=== PATIENT | female | born 2005 | race Two or more races ===

== ENCOUNTER 2023-10-12 13:20 | Inpatient (IN) | payer OTHER ==
[~2023-10-12] VITALS: Ht 157.5 cm; Wt 80.8 kg
[2023-10-12 14:16] LABS: BASOPHILS % (AUTO) 0.4 % (0.0-2.0); EOSINOPHILS % (AUTO) 0.1 % (1.0-6.0); HEMATOCRIT 42.4 % (36-46); HEMOGLOBIN 14.3 g/dL (12.0-16.0); LYMPHOCYTES # (AUTO) 1.7 K/uL (1.0-4.8); MEAN CORPUSCULAR HEMOGLOBIN 30.4 pg (26.0-34.0); MEAN CORPUSCULAR HGB CONC 33.7 G/dL (31.0-37.0); MEAN CORPUSCULAR VOLUME 90 fL (80-100); MONOCYTES # (AUTO) 0.8 K/uL (0.1-1.0); MONOCYTES % (AUTO) 6.9 % (2.0-9.0); NEUTROPHILS # (AUTO) 9.6 K/uL (1.8-7.7); NEUTROPHILS % (AUTO) 78.6 % (40.0-70.0); PLATELET COUNT (AUTO) 256 K/uL (150-450); RED BLOOD CELL COUNT(AUTO) 4.71 MIL/uL (4.00-5.20); WHITE BLOOD COUNT (AUTO) 12.2 K/uL (4.5-11.0)
[2023-10-12 14:26] LABS: ANION GAP 12 mmol/L (8-16); CALCIUM, TOTAL 9.2 mg/dL (8.8-10.5); CARBON DIOXIDE 23 mmol/L (22-29); CHLORIDE 105 mmol/L (98-107); CREATININE 0.95 mg/dL (0.60-1.30); GLOMERULAR FILTR. RATE CALC > 60 mL/min (>60); GLUCOSE,RANDOM 94 mg/dL (70-110); POTASSIUM 3.6 mmol/L (3.5-5.1); SODIUM SERUM 140 mmol/L (136-145); UREA NITROGEN, BLOOD 7 mg/dL (7-18)
[2023-10-12 14:28] LABS: ALCOHOL, BLOOD (SERUM) < 3 mg/dL (0-10)
[2023-10-12] MEDS: HALOPERIDOL LACTATE 5 MG/ML VIAL IM ONE (14:30)
[2023-10-12] MEDS: DiphenhydrAMINE HCL 50 MG/ML VIAL IM ONE (14:30)
[2023-10-12] MEDS: LORazepam 2 MG/ML VIAL IM ONE (14:30)
[2023-10-12 14:34] LABS: COVID AG,FIA SOURCE NASAL SWAB
[2023-10-12 15:00] LABS: SARS-COV2 (COVID) ANTIGEN,FIA Negative (Negative)
[2023-10-12 15:13] LABS: APPEARANCE,URINE HAZY (CLEAR); BILIRUBIN,URINE NEGATIVE (NEGATIVE); COLOR,URINE YELLOW (YELLOW); GLUCOSE, URINE (UA) NEGATIVE (NEGATIVE); LEUKOCYTE ESTERASE ,URINE NEGATIVE (NEGATIVE); NITRATE,URINE NEGATIVE (NEGATIVE); OCCULT BLOOD,URINE NEGATIVE (NEGATIVE); PH,URINE 6.5 (5.0-8.0); PH,URINE DRUG SCREEN 6.5 (5.0-8.0); PROTEIN,URINE TRACE mg/dL (NEGATIVE); SPECIFIC GRAVITIY, URINE 1.017 (1.003-1.030); UROBILINOGEN,URINE <=1.0 mg/dL (<=1.0)
[2023-10-12 15:18] LABS: ALCOHOL, URINE DRUG SCREEN NEGATIVE (NEGATIVE); AMPHET/METH SCREEN,URINE NEGATIVE (NEGATIVE); BARBITURATE SCREEN, URINE NEGATIVE (NEGATIVE); BENZODIAZEPINES SCREEN,URINE POSITIVE (NEGATIVE); CANNABINOID SCREEN,URINE POSITIVE (NEGATIVE); COCAINE SCREEN,URINE NEGATIVE (NEGATIVE); METHADONE SCREEN, URINE NEGATIVE (NEGATIVE); OPIATE SCREEN,URINE NEGATIVE (NEGATIVE); PHENCYCLIDINE SCREEN,URINE NEGATIVE (NEGATIVE)
[2023-10-12] MEDS ORDERED: CloNIDine HCL 0.1 MG TABLET PO PRN (19:45)
[2023-10-12] MEDS ORDERED: ONDANSETRON HCL 4 MG TABLET PO PRN (19:45)
[2023-10-12] MEDS ORDERED: PETROLATUM,WHITE 28 GM JELLY TP PRN (19:45)
[2023-10-12] MEDS ORDERED: DOCUSATE SODIUM 100 MG CAPSULE PO PRN (19:45)
[2023-10-12] MEDS ORDERED: LOPERAMIDE HCL 2 MG CAPSULE PO PRN (19:45)
[2023-10-12] MEDS ORDERED: BENZOCAINE/MENTHOL LOZENGE PO PRN (19:45)
[2023-10-12] MEDS ORDERED: BACITRACIN 28 GM OINTMENT TP PRN (19:45)
[2023-10-12] MEDS: HALOPERIDOL 5 MG TABLET PO PRN (21:28)
[2023-10-12] MEDS: LORazepam 2 MG TABLET PO PRN (21:28)
[2023-10-12 22:10] VITALS: BP 113/75; PULSE 79; RESP 20; TEMP 97.4
[2023-10-12] MEDS: ZOLPIDEM TARTRATE 10 MG TABLET PO PRN (22:27)
[2023-10-12 22:28] VITALS: BP 113/75; PULSE 79; RESP 20; TEMP 97.4; O2SAT 97
[2023-10-13] MEDS: NICOTINE 21 MG/24 HOUR PATCH TD SCH (09:00)
[2023-10-13 09:35] VITALS: BP 107/55; PULSE 55; RESP 18; RESP 20; TEMP 97; O2SAT 100
[2023-10-13 14:35] VITALS: BP 111/62; PULSE 61; RESP 17; TEMP 97.6
[2023-10-13] MEDS: IBUPROFEN 600 MG TABLET PO PRN (14:35)
[2023-10-13 21:05] VITALS: RESP 18
[2023-10-13] MEDS: MAG HYDROX/ALUMINUM HYD/SIMETH ES 30 ML SUSPENSION UDCUP PO PRN (23:36)
[2023-10-14 09:27] VITALS: BP 126/65; PULSE 86; RESP 18; TEMP 97.2; O2SAT 96
[2023-10-14] MEDS: OLANZapine 5 MG RAPDIS TABLET PO SCH (20:43)
[2023-10-14 20:52] VITALS: RESP 18
[2023-10-15] MEDS: LITHIUM CARBONATE 300 MG CAPSULE PO SCH (10:30)
[2023-10-15] MEDS: RisperiDONE 1 MG TABLET PO SCH (10:30)
[2023-10-15] MEDS ORDERED: DiphenhydrAMINE HCL 50 MG/ML VIAL ONE (10:32)
[2023-10-15] MEDS ORDERED: HALOPERIDOL LACTATE 5 MG/ML VIAL ONE (10:32)
[2023-10-15] MEDS: LORazepam 2 MG/ML VIAL IM ONE (11:11)
[2023-10-15] MEDS: DiphenhydrAMINE HCL 50 MG/ML VIAL IM ONE (11:11)
[2023-10-15] MEDS: HALOPERIDOL LACTATE 5 MG/ML VIAL IM ONE (11:26)
[2023-10-15 13:38] VITALS: BP 142/71; PULSE 88; RESP 18; O2SAT 98
[2023-10-15 21:26] VITALS: RESP 18
[2023-10-16 10:01] VITALS: RESP 18
[2023-10-16 20:58] VITALS: RESP 18
[2023-10-17 09:00] VITALS: PULSE 101; TEMP 97.1
[2023-10-17] MEDS: ALBUTEROL SULFATE HFA 90 MCG/PUFF 8 GM INHALER IH PRN (15:55)
[2023-10-17 22:49] VITALS: BP 136/87; PULSE 96; RESP 18; TEMP 97.4; O2SAT 98
[2023-10-18 09:35] VITALS: BP 139/100; PULSE 92; RESP 19; TEMP 97; O2SAT 100
[2023-10-18] MEDS: LORazepam 2 MG/ML VIAL IM ONE (18:26)
[2023-10-18] MEDS: HALOPERIDOL LACTATE 5 MG/ML VIAL IM ONE (18:31)
[2023-10-18] MEDS: DiphenhydrAMINE HCL 50 MG/ML VIAL IM ONE (18:32)
[2023-10-18 23:06] VITALS: RESP 18
[2023-10-19 00:35] VITALS: BP 117/73; PULSE 68; RESP 18; TEMP 97.3
[2023-10-19 08:42] VITALS: BP 105/61; PULSE 63; RESP 16; TEMP 97.7; O2SAT 100
[2023-10-19 20:43] VITALS: BP 121/76; PULSE 93; RESP 16; TEMP 97; O2SAT 99
[2023-10-20 08:08] VITALS: BP 136/77; PULSE 83; RESP 16; TEMP 97.6; O2SAT 98
[2023-10-20 21:31] VITALS: BP 129/78; PULSE 86; RESP 16; TEMP 97.9; O2SAT 98
[2023-10-20 21:54] VITALS: RESP 17
[2023-10-20] MEDS: ACETAMINOPHEN 325 MG TABLET PO PRN (21:56)
[2023-10-21 08:08] VITALS: BP 135/66; PULSE 79; RESP 16; TEMP 98.2; O2SAT 100
[2023-10-21] MEDS: OMEPRAZOLE 20 MG CAPSULE PO PRN (18:36)
[2023-10-21 20:45] VITALS: BP 128/72; PULSE 83; RESP 17; TEMP 97.9
[2023-10-22 08:10] VITALS: BP 116/60; PULSE 84; RESP 17; TEMP 97.6; O2SAT 99
[2023-10-22 20:35] VITALS: BP 124/83; PULSE 76; RESP 18; TEMP 98; O2SAT 98
[2023-10-23 08:17] VITALS: BP 130/65; PULSE 79; RESP 14; TEMP 97.8; O2SAT 99
[2023-10-23 20:39] VITALS: RESP 17
[2023-10-23 21:30] VITALS: RESP 15
[2023-10-24 08:25] VITALS: BP 131/64; PULSE 77; RESP 17; TEMP 97.6; O2SAT 98
[2023-10-24 20:00] VITALS: BP 127/60; PULSE 80; RESP 18; TEMP 98
[2023-10-25 08:30] VITALS: BP 132/72; PULSE 89; RESP 18; TEMP 97.9; O2SAT 98
[2023-10-25 20:00] VITALS: BP 125/67; PULSE 73; RESP 18; TEMP 97.6; O2SAT 97
[2023-10-26 08:29] VITALS: BP 115/63; PULSE 88; RESP 16; TEMP 98.2; O2SAT 98
[2023-10-26] MEDS: MAGNESIUM HYDROXIDE SUSPENSION 30 ML UDCUP PO PRN (08:35)
[2023-10-26 20:27] VITALS: BP 130/74; PULSE 86; TEMP 96.8; O2SAT 97
[2023-10-27] MEDS: ALOE VERA 100% 360 ML GEL TP SCH (08:23)
[2023-10-27 08:36] VITALS: BP 134/73; PULSE 92; RESP 16; TEMP 97.6; O2SAT 99
[2023-10-27] MEDS ORDERED: VITAMIN E TP SCH (09:00)
[2023-10-27] MEDS ORDERED: ALOE VERA TP SCH (09:00)
[2023-10-27 21:36] VITALS: BP 120/74; PULSE 97; RESP 18; TEMP 97.4; O2SAT 98
[2023-10-28 08:21] VITALS: BP 134/76; PULSE 100; RESP 18; TEMP 97.9; O2SAT 98
[2023-10-28] MEDS: RisperiDONE 1 MG TABLET PO ONE (10:17)
[2023-10-28] MEDS: RisperiDONE 2 MG TABLET PO SCH (20:15)
[2023-10-28 22:42] VITALS: BP 134/82; PULSE 90; RESP 16; TEMP 97.6; O2SAT 100
[2023-10-29] MEDS ORDERED: LITH300C3 PO (08:10)
[2023-10-29] MEDS ORDERED: RISP2TAB45 PO (08:10)
[2023-10-29 08:24] VITALS: BP 120/65; PULSE 82; RESP 16; TEMP 97.9; O2SAT 100
== END 2023-10-29 12:08 | disposition home or self-care (01) | DRG 885 ==
LOC: EMS 13:21 → 3EC 15:48 → B3A 10-18 22:13
PROVIDERS: ADMIT Psychiatry & Neurology Psychiatry; ATTEND Psychiatry & Neurology Psychiatry
PROC: GZHZZZZ Group Psychotherapy (ICD-10-PCS; principal; 2023-10-13)
PROC: GZ56ZZZ Individual Psychotherapy, Supportive (ICD-10-PCS; 2023-10-13)
DX: F25.0 Schizoaffective disorder, bipolar type (principal); F15.10 Other stimulant abuse, uncomplicated; F41.9 Anxiety disorder, unspecified; G47.00 Insomnia, unspecified; F12.10 Cannabis abuse, uncomplicated; Z20.822 Contact with and (suspected) exposure to COVID-19; K59.00 Constipation, unspecified; Z91.199 Patient's noncompliance with other medical treatment and regimen due to unspecified reason
CPT/HCPCS: 80048; 80307; 81003; 84703; 85025; 99285; G0480; J1200; J1630; J2060; J3535

== ENCOUNTER 2024-09-15 12:53 | Inpatient (IN) | payer OTHER ==
[~2024-09-15] VITALS: Ht 157.5 cm; Wt 77.1 kg
[~2024-09-15 12:53] MED LIST: LITH300C3 PO; RISP2TAB45 PO
[2024-09-15] MEDS: DiphenhydrAMINE HCL 50 MG/ML VIAL IM ONE (13:19)
[2024-09-15] MEDS: LORazepam 2 MG/ML VIAL IM ONE ×2 (13:19→16:23)
[2024-09-15] MEDS: HALOPERIDOL LACTATE 5 MG/ML VIAL IM ONE ×2 (13:20→16:23)
[2024-09-15 14:26] LABS: COVID AG,FIA SOURCE NASAL SWAB
[2024-09-15 14:33] LABS: ANION GAP 9 mmol/L (8-16); CALCIUM, TOTAL 8.9 mg/dL (8.8-10.5); CARBON DIOXIDE 27 mmol/L (22-29); CHLORIDE 105 mmol/L (98-107); CREATININE 0.75 mg/dL (0.60-1.30); GLOMERULAR FILTR. RATE CALC > 60 mL/min (>60); GLUCOSE,RANDOM 87 mg/dL (70-110); SODIUM SERUM 141 mmol/L (136-145); UREA NITROGEN, BLOOD 7 mg/dL (7-18)
[2024-09-15 14:35] LABS: BASOPHILS % (AUTO) 0.5 % (0.0-2.0); EOSINOPHILS % (AUTO) 0.2 % (1.0-6.0); HEMATOCRIT 38.8 % (36-46); HEMOGLOBIN 12.8 g/dL (12.0-16.0); LYMPHOCYTES # (AUTO) 1.4 K/uL (1.0-4.8); LYMPHOCYTES % (AUTO) 18.2 % (22.0-44.0); MEAN CORPUSCULAR HEMOGLOBIN 30.2 pg (26.0-34.0); MEAN CORPUSCULAR HGB CONC 33.1 G/dL (31.0-37.0); MEAN CORPUSCULAR VOLUME 91 fL (80-100); MONOCYTES # (AUTO) 0.7 K/uL (0.1-1.0); MONOCYTES % (AUTO) 9.6 % (2.0-9.0); NEUTROPHILS # (AUTO) 5.4 K/uL (1.8-7.7); NEUTROPHILS % (AUTO) 71.5 % (40.0-70.0); PLATELET COUNT (AUTO) 230 K/uL (150-450); RED BLOOD CELL COUNT(AUTO) 4.25 MIL/uL (4.00-5.20); RED CELL DISTRIBUTION WIDTH 13.5 % (11.5-14.5); WHITE BLOOD COUNT (AUTO) 7.6 K/uL (4.5-11.0)
[2024-09-15 14:46] LABS: POTASSIUM 2.9 mmol/L (3.5-5.1)
[2024-09-15 14:54] LABS: ALCOHOL, BLOOD (SERUM) < 3 mg/dL (0-10)
[2024-09-15] MEDS ORDERED: POTASSIUM CHL 10 MEQ/WATER 50 ML IV SCH (15:00)
[2024-09-15] MEDS ORDERED: SODIUM CHLORIDE 0.9% 1,000 ML IV ONE (15:00)
[2024-09-15 15:03] LABS: SARS-COV2 (COVID) ANTIGEN,FIA Negative (Negative)
[2024-09-15] MEDS: POTASSIUM CHLORIDE 20 MEQ ER TABLET PO ONE (15:38)
[2024-09-15] MEDS: POTASSIUM CHLORIDE 10% 40 MEQ/30 ML LIQUID UDCUP PO ONE (15:47)
[2024-09-15] MEDS ORDERED: HALOPERIDOL 5 MG TABLET PO PRN (16:15)
[2024-09-15 18:54] VITALS: O2SAT 98
[2024-09-16 00:24] VITALS: BP 102/59; PULSE 65; RESP 16; TEMP 97.7; O2SAT 98
[2024-09-16 08:26] VITALS: BP 118/78; PULSE 73; RESP 16; TEMP 97.9; O2SAT 96
[2024-09-16] MEDS: RisperiDONE 2 MG TABLET PO SCH (12:30)
[2024-09-16] MEDS ORDERED: LORazepam 2 MG/ML VIAL ONE (13:08)
[2024-09-16] MEDS ORDERED: HALOPERIDOL LACTATE 5 MG/ML VIAL ONE ×2 (13:08→13:09)
[2024-09-16] MEDS ORDERED: DiphenhydrAMINE HCL 50 MG/ML VIAL ONE (13:08)
[2024-09-16] MEDS: DiphenhydrAMINE HCL 50 MG/ML VIAL IM ONE (14:02)
[2024-09-16] MEDS: HALOPERIDOL LACTATE 5 MG/ML VIAL IM ONE (14:03)
[2024-09-16] MEDS: LORazepam 2 MG/ML VIAL IM ONE (14:03)
[2024-09-16] MEDS: LITHIUM CARBONATE 300 MG CAPSULE PO SCH (15:54)
[2024-09-16] MEDS: ZOLPIDEM TARTRATE 10 MG TABLET PO PRN (21:48)
[2024-09-16 21:52] VITALS: RESP 18
[2024-09-16] MEDS ORDERED: ONDANSETRON 4 MG TABLET PO PRN (22:15)
[2024-09-16] MEDS ORDERED: LOPERAMIDE HCL 2 MG CAPSULE PO PRN (22:15)
[2024-09-16] MEDS ORDERED: BACITRACIN 28 GM OINTMENT TP PRN (22:15)
[2024-09-16] MEDS ORDERED: CloNIDine HCL 0.1 MG TABLET PO PRN (22:15)
[2024-09-16] MEDS ORDERED: PETROLATUM,WHITE 28 GM JELLY TP PRN (22:15)
[2024-09-16] MEDS ORDERED: MAGNESIUM HYDROXIDE SUSPENSION 30 ML UDCUP PO PRN (22:15)
[2024-09-16] MEDS ORDERED: ALBUTEROL SULFATE HFA 90 MCG/PUFF 8 GM INHALER IH PRN (22:15)
[2024-09-16] MEDS ORDERED: DOCUSATE SODIUM 100 MG CAPSULE PO PRN (22:15)
[2024-09-16] MEDS ORDERED: OMEPRAZOLE 20 MG CAPSULE PO PRN (22:15)
[2024-09-17] VITALS (7 sets, daily range): BP systolic 124–148; BP diastolic 65–77; PULSE 96–110; RESP 18–19; TEMP 97.3–97.8; O2SAT 98–99
[2024-09-17] MEDS: ALBUTEROL SULFATE HFA 90 MCG/PUFF 8 GM INHALER IH PRN ×2 (05:38→13:09)
[2024-09-17] MEDS: IBUPROFEN 600 MG TABLET PO PRN (09:21)
[2024-09-17] MEDS: MAG HYDROX/ALUMINUM HYD/SIMETH ES 30 ML SUSPENSION UDCUP PO PRN (19:12)
[2024-09-17] MEDS: BENZOCAINE/MENTHOL [CEPACOL] LOZENGE PO PRN (19:13)
[2024-09-18 08:33] VITALS: RESP 18
[2024-09-18 08:35] VITALS: BP 126/70; PULSE 99; RESP 18; TEMP 97.3; O2SAT 98
[2024-09-18 09:33] VITALS: RESP 18
[2024-09-18] MEDS ORDERED: EUCALYPTUS OIL/MENTHOL/CAMPHOR 50 GM OINTMENT TP PRN (11:45)
[2024-09-18 16:25] VITALS: RESP 18
[2024-09-18] MEDS: ACETAMINOPHEN 325 MG TABLET PO PRN (16:26)
[2024-09-18 17:25] VITALS: RESP 16
[2024-09-18 21:14] VITALS: BP 132/75; PULSE 100; RESP 18; TEMP 97.9; O2SAT 96
[2024-09-19] MEDS: SULFAMETHOX/TRIMETH DS 800-160 MG/TABLET PO SCH (09:09)
[2024-09-19 09:23] LABS: APPEARANCE,URINE CLEAR (CLEAR); BILIRUBIN,URINE NEGATIVE (NEGATIVE); COLOR,URINE COLORLESS (YELLOW); GLUCOSE, URINE (UA) NEGATIVE (NEGATIVE); KETONES,URINE NEGATIVE (NEGATIVE); LEUKOCYTE ESTERASE ,URINE NEGATIVE (NEGATIVE); NITRATE,URINE NEGATIVE (NEGATIVE); OCCULT BLOOD,URINE NEGATIVE (NEGATIVE); PROTEIN,URINE NEGATIVE (NEGATIVE); SPECIFIC GRAVITIY, URINE 1.008 (1.003-1.030); UROBILINOGEN,URINE <=1.0 mg/dL (<=1.0)
[2024-09-19 09:30] LABS: AMPHET/METH SCREEN,URINE NEGATIVE (NEGATIVE); BARBITURATE SCREEN, URINE NEGATIVE (NEGATIVE); BENZODIAZEPINES SCREEN,URINE NEGATIVE (NEGATIVE); CANNABINOID SCREEN,URINE POSITIVE (NEGATIVE); COCAINE SCREEN,URINE NEGATIVE (NEGATIVE); METHADONE SCREEN, URINE NEGATIVE (NEGATIVE); OPIATE SCREEN,URINE NEGATIVE (NEGATIVE); PHENCYCLIDINE SCREEN,URINE NEGATIVE (NEGATIVE)
[2024-09-19 09:32] LABS: ALCOHOL, URINE DRUG SCREEN NEGATIVE (NEGATIVE)
[2024-09-19 10:13] VITALS: BP 117/64; PULSE 75; RESP 18; TEMP 97.2; O2SAT 100
[2024-09-19] MEDS: NICOTINE POLACRILEX 2 MG LOZENGE PO PRN (10:33)
[2024-09-19 20:05] VITALS: BP 146/73; PULSE 95; RESP 18; TEMP 97.5
[2024-09-20] MEDS: NICOTINE 14 MG/24 HOUR PATCH TD PRN (08:03)
[2024-09-20 08:20] VITALS: BP 145/93; PULSE 86; RESP 18; TEMP 97.2; O2SAT 100
[2024-09-20 08:37] VITALS: RESP 17
[2024-09-20 09:37] VITALS: RESP 16
[2024-09-20 13:27] VITALS: RESP 17
[2024-09-20 14:27] VITALS: RESP 16
[2024-09-20] MEDS: LITHIUM CARBONATE 300 MG CAPSULE PO SCH (16:32)
[2024-09-20 21:17] VITALS: BP 140/71; PULSE 87; RESP 18; TEMP 97.2; O2SAT 98
[2024-09-21] MEDS: LORazepam 2 MG TABLET PO PRN (02:09)
[2024-09-21 08:54] VITALS: BP 130/71; PULSE 81; RESP 17; TEMP 96.9; O2SAT 98
[2024-09-21] MEDS ORDERED: LITH300C3 PO (09:40)
[2024-09-21] MEDS ORDERED: RISP-32 PO (09:41)
== END 2024-09-21 12:06 | disposition home or self-care (01) | DRG 885 ==
LOC: EMS 12:54 → B3A 21:04 → B2S 09-16 15:40
PROVIDERS: ADMIT Psychiatry & Neurology Psychiatry; ATTEND Psychiatry & Neurology Psychiatry
DX: F25.9 Schizoaffective disorder, unspecified (principal); F31.9 Bipolar disorder, unspecified; E87.6 Hypokalemia; F41.9 Anxiety disorder, unspecified; Z20.822 Contact with and (suspected) exposure to COVID-19; G47.00 Insomnia, unspecified; K59.00 Constipation, unspecified; F15.10 Other stimulant abuse, uncomplicated; F12.90 Cannabis use, unspecified, uncomplicated; Z78.1 Physical restraint status
CPT/HCPCS: 80048; 80178; 80307; 81003; 84132; 84703; 85025; 96372; 99285; G0480; J1200; J1630; J2060; J3480; J3535; J7030

== ENCOUNTER 2024-09-24 10:04 | Inpatient (IN) | payer OTHER ==
[~2024-09-24] VITALS: Ht 154.9 cm; Wt 79.8 kg
[~2024-09-24 10:04] MED LIST changes: +RISP-32 PO; -RISP2TAB45 PO
[2024-09-24 10:32] LABS: COVID AG,FIA SOURCE NASAL SWAB
[2024-09-24 11:02] LABS: SARS-COV2 (COVID) ANTIGEN,FIA Negative (Negative)
[2024-09-24 12:19] LABS: BASOPHILS % (AUTO) 0.7 % (0.0-2.0); EOSINOPHILS % (AUTO) 1.9 % (1.0-6.0); HEMATOCRIT 39.3 % (36-46); HEMOGLOBIN 13.2 g/dL (12.0-16.0); LYMPHOCYTES # (AUTO) 2.3 K/uL (1.0-4.8); LYMPHOCYTES % (AUTO) 28.6 % (22.0-44.0); MEAN CORPUSCULAR HEMOGLOBIN 30.6 pg (26.0-34.0); MEAN CORPUSCULAR HGB CONC 33.7 G/dL (31.0-37.0); MEAN CORPUSCULAR VOLUME 91 fL (80-100); MONOCYTES # (AUTO) 0.9 K/uL (0.1-1.0); MONOCYTES % (AUTO) 10.9 % (2.0-9.0); NEUTROPHILS # (AUTO) 4.6 K/uL (1.8-7.7); NEUTROPHILS % (AUTO) 57.9 % (40.0-70.0); PLATELET COUNT (AUTO) 279 K/uL (150-450); RED BLOOD CELL COUNT(AUTO) 4.33 MIL/uL (4.00-5.20); RED CELL DISTRIBUTION WIDTH 14.2 % (11.5-14.5); WHITE BLOOD COUNT (AUTO) 7.9 K/uL (4.5-11.0)
[2024-09-24 12:24] LABS: ANION GAP 10 mmol/L (8-16); CARBON DIOXIDE 26 mmol/L (22-29); CHLORIDE 106 mmol/L (98-107); CREATININE 0.63 mg/dL (0.60-1.30); GLOMERULAR FILTR. RATE CALC > 60 mL/min (>60); GLUCOSE,RANDOM 81 mg/dL (70-110); POTASSIUM 3.6 mmol/L (3.5-5.1); SODIUM SERUM 141 mmol/L (136-145); UREA NITROGEN, BLOOD 17 mg/dL (7-18)
[2024-09-24 12:44] LABS: ALCOHOL, BLOOD (SERUM) < 3 mg/dL (0-10)
[2024-09-24 15:51] VITALS: O2SAT 99
[2024-09-24 15:51] LABS: APPEARANCE,URINE CLEAR (CLEAR); BILIRUBIN,URINE NEGATIVE (NEGATIVE); COLOR,URINE YELLOW (YELLOW); GLUCOSE, URINE (UA) NEGATIVE (NEGATIVE); LEUKOCYTE ESTERASE ,URINE NEGATIVE (NEGATIVE); NITRATE,URINE NEGATIVE (NEGATIVE); OCCULT BLOOD,URINE NEGATIVE (NEGATIVE); PH,URINE 5.5 (5.0-8.0); PH,URINE DRUG SCREEN 5.5 (5.0-8.0); PROTEIN,URINE TRACE mg/dL (NEGATIVE); SPECIFIC GRAVITIY, URINE 1.034 (1.003-1.030); UROBILINOGEN,URINE <=1.0 mg/dL (<=1.0)
[2024-09-24 15:58] LABS: ALCOHOL, URINE DRUG SCREEN NEGATIVE (NEGATIVE); AMPHET/METH SCREEN,URINE NEGATIVE (NEGATIVE); BARBITURATE SCREEN, URINE NEGATIVE (NEGATIVE); BENZODIAZEPINES SCREEN,URINE POSITIVE (NEGATIVE); CANNABINOID SCREEN,URINE POSITIVE (NEGATIVE); COCAINE SCREEN,URINE POSITIVE (NEGATIVE); METHADONE SCREEN, URINE NEGATIVE (NEGATIVE); OPIATE SCREEN,URINE NEGATIVE (NEGATIVE); PHENCYCLIDINE SCREEN,URINE NEGATIVE (NEGATIVE)
[2024-09-24] MEDS ORDERED: DiphenhydrAMINE HCL 50 MG/ML VIAL ONE (16:11)
[2024-09-24] MEDS ORDERED: LORazepam 2 MG/ML VIAL ONE (16:12)
[2024-09-24] MEDS ORDERED: HALOPERIDOL LACTATE 5 MG/ML VIAL ONE (16:12)
[2024-09-24] MEDS: LORazepam 2 MG/ML VIAL IM ONE (16:18)
[2024-09-24] MEDS: DiphenhydrAMINE HCL 50 MG/ML VIAL IM ONE (16:18)
[2024-09-24] MEDS: HALOPERIDOL LACTATE 5 MG/ML VIAL IM ONE (16:19)
[2024-09-24] MEDS ORDERED: PETROLATUM,WHITE 28 GM JELLY TP PRN (18:30)
[2024-09-24] MEDS ORDERED: OMEPRAZOLE 20 MG CAPSULE PO PRN (18:30)
[2024-09-24] MEDS ORDERED: CloNIDine HCL 0.1 MG TABLET PO PRN (18:30)
[2024-09-24] MEDS ORDERED: LOPERAMIDE HCL 2 MG CAPSULE PO PRN (18:30)
[2024-09-24] MEDS ORDERED: MAG HYDROX/ALUMINUM HYD/SIMETH ES 30 ML SUSPENSION UDCUP PO PRN (18:30)
[2024-09-24] MEDS ORDERED: DOCUSATE SODIUM 100 MG CAPSULE PO PRN (18:30)
[2024-09-24] MEDS ORDERED: BENZOCAINE/MENTHOL [CEPACOL] LOZENGE PO PRN (18:30)
[2024-09-24 19:04] VITALS: BP 127/74; PULSE 83; RESP 18; TEMP 96.5; O2SAT 99
[2024-09-24] MEDS: RisperiDONE 2 MG TABLET PO SCH (21:00)
[2024-09-24 21:19] VITALS: RESP 18
[2024-09-25] MEDS: SULFAMETHOX/TRIMETH DS 800-160 MG/TABLET PO SCH (08:06)
[2024-09-25] MEDS: LITHIUM CARBONATE 300 MG CAPSULE PO SCH (08:06)
[2024-09-25 11:32] VITALS: BP 110/70; PULSE 92; RESP 19; O2SAT 100
[2024-09-25] MEDS: NICOTINE 14 MG/24 HOUR PATCH TD PRN (13:36)
[2024-09-25] MEDS: MAGNESIUM HYDROXIDE SUSPENSION 30 ML UDCUP PO PRN (15:11)
[2024-09-25] MEDS: ALBUTEROL SULFATE HFA 90 MCG/PUFF 8 GM INHALER IH PRN (16:58)
[2024-09-25 18:46] VITALS: BP 124/74; PULSE 88; RESP 18; O2SAT 99
[2024-09-25] MEDS: IBUPROFEN 600 MG TABLET PO PRN (18:46)
[2024-09-25 19:46] VITALS: RESP 18
[2024-09-25 20:48] VITALS: RESP 18
[2024-09-25] MEDS: ZOLPIDEM TARTRATE 10 MG TABLET PO PRN (22:11)
[2024-09-26 04:15] VITALS: BP 120/80; PULSE 81; RESP 19; TEMP 97.6; O2SAT 98
[2024-09-26 05:18] VITALS: RESP 18
[2024-09-26 07:34] VITALS: BP 116/70; PULSE 95; RESP 18; TEMP 97.7; O2SAT 100
[2024-09-26] MEDS: ACETAMINOPHEN 325 MG TABLET PO PRN (07:34)
[2024-09-26 08:10] LABS: HEMOGLOBIN A1C 4.7 % (3.8-5.6)
[2024-09-26 08:11] LABS: CHOL/HDL RATIO 2.2 (3.9-5.7)
[2024-09-26 08:34] VITALS: BP 116/70; PULSE 95; RESP 17; TEMP 97.7; O2SAT 100
[2024-09-26] MEDS: BACITRACIN 28 GM OINTMENT TP PRN (09:10)
[2024-09-26] MEDS: ONDANSETRON 4 MG TABLET PO PRN (12:31)
[2024-09-26] MEDS: HALOPERIDOL LACTATE 5 MG/ML VIAL IM ONE (20:00)
[2024-09-26] MEDS: DiphenhydrAMINE HCL 50 MG/ML VIAL IM ONE (20:00)
[2024-09-26] MEDS: LORazepam 2 MG/ML VIAL IM ONE (20:00)
[2024-09-26] MEDS: LORazepam 2 MG TABLET PO PRN (20:45)
[2024-09-26] MEDS: haloperidoL 5 MG TABLET PO PRN (20:45)
[2024-09-26 21:16] VITALS: BP 157/91; PULSE 97; RESP 16; TEMP 97.1; O2SAT 100
[2024-09-27] MEDS: BENZOCAINE/MENTHOL [CEPACOL] LOZENGE PO PRN (08:42)
[2024-09-27 08:49] VITALS: BP 159/98; PULSE 105; RESP 16; TEMP 98.2; O2SAT 97
[2024-09-27 21:33] VITALS: BP 123/74; PULSE 96; RESP 18; TEMP 97.3; O2SAT 99
[2024-09-28] MEDS: HYDROCORTISONE 1% 30 GM CREAM TP SCH (08:17)
[2024-09-28 11:02] VITALS: BP 126/68; PULSE 100; RESP 18; TEMP 97.3; O2SAT 100
[2024-09-28 16:28] VITALS: BP 128/77; PULSE 88; RESP 17; TEMP 97.6; O2SAT 99
[2024-09-28 21:48] VITALS: RESP 18
[2024-09-29 01:10] VITALS: RESP 18
[2024-09-29 02:13] VITALS: RESP 18
[2024-09-29 03:07] LABS: HEPATITIS A ANTIBODY IGM Negative (Negative); HEPATITIS B CORE IGM Negative (Negative); HEPATITIS C AB (EIA) Non Reactive (Non Reactive)
[2024-09-29] MEDS ORDERED: SULF-261 PO (07:58)
== END 2024-09-29 10:15 | disposition left against medical advice (07) | DRG 885 ==
LOC: EMS 10:05 → 3EC 16:15
PROVIDERS: ADMIT Psychiatry & Neurology Psychiatry; ATTEND Psychiatry & Neurology Psychiatry
PROC: GZ52ZZZ Individual Psychotherapy, Cognitive (ICD-10-PCS; principal; 2024-09-25)
DX: F25.0 Schizoaffective disorder, bipolar type (principal); G47.00 Insomnia, unspecified; Z20.822 Contact with and (suspected) exposure to COVID-19; F15.10 Other stimulant abuse, uncomplicated; F41.9 Anxiety disorder, unspecified; K59.00 Constipation, unspecified; R45.850 Homicidal ideations; Z79.899 Other long term (current) drug therapy; Z53.29 Procedure and treatment not carried out because of patient's decision for other reasons
CPT/HCPCS: 80048; 80061; 80074; 80178; 80307; 81003; 83036; 84703; 85025; 86592; 87081; 87389; 87491; 87591; 96372; 99285; G0480; J1200; J1630; J2060; Q0162

== ENCOUNTER 2024-09-30 19:28 | Inpatient (IN) | payer OTHER ==
[~2024-09-30] VITALS: Ht 157.5 cm; Wt 83.5 kg
[~2024-09-30 19:28] MED LIST changes: +SULF-261 PO
[2024-09-30 20:00] LABS: BASOPHILS % (AUTO) 1.1 % (0.0-2.0); EOSINOPHILS % (AUTO) 2.8 % (1.0-6.0); HEMATOCRIT 41.7 % (36-46); HEMOGLOBIN 13.9 g/dL (12.0-16.0); LYMPHOCYTES # (AUTO) 2.2 K/uL (1.0-4.8); LYMPHOCYTES % (AUTO) 23.6 % (22.0-44.0); MEAN CORPUSCULAR HEMOGLOBIN 30.2 pg (26.0-34.0); MEAN CORPUSCULAR HGB CONC 33.5 G/dL (31.0-37.0); MEAN CORPUSCULAR VOLUME 90 fL (80-100); MONOCYTES # (AUTO) 0.7 K/uL (0.1-1.0); NEUTROPHILS % (AUTO) 64.5 % (40.0-70.0); PLATELET COUNT (AUTO) 253 K/uL (150-450); RED BLOOD CELL COUNT(AUTO) 4.62 MIL/uL (4.00-5.20); RED CELL DISTRIBUTION WIDTH 14.1 % (11.5-14.5); WHITE BLOOD COUNT (AUTO) 9.4 K/uL (4.5-11.0)
[2024-09-30 20:06] LABS: ANION GAP 6 mmol/L (8-16); CALCIUM, TOTAL 9.2 mg/dL (8.8-10.5); CARBON DIOXIDE 28 mmol/L (22-29); CHLORIDE 106 mmol/L (98-107); CREATININE 1.04 mg/dL (0.60-1.30); GLOMERULAR FILTR. RATE CALC > 60 mL/min (>60); GLUCOSE,RANDOM 94 mg/dL (70-110); SODIUM SERUM 140 mmol/L (136-145); UREA NITROGEN, BLOOD 14 mg/dL (7-18)
[2024-09-30 20:10] LABS: COVID AG,FIA SOURCE NASAL SWAB
[2024-09-30 20:14] LABS: APPEARANCE,URINE CLEAR (CLEAR); BILIRUBIN,URINE NEGATIVE (NEGATIVE); COLOR,URINE YELLOW (YELLOW); GLUCOSE, URINE (UA) NEGATIVE (NEGATIVE); KETONES,URINE NEGATIVE (NEGATIVE); LEUKOCYTE ESTERASE ,URINE TRACE (NEGATIVE); NITRATE,URINE NEGATIVE (NEGATIVE); OCCULT BLOOD,URINE NEGATIVE (NEGATIVE); PH,URINE 6.5 (5.0-8.0); PH,URINE DRUG SCREEN 6.5 (5.0-8.0); PROTEIN,URINE 30-70 mg/dL (NEGATIVE); SPECIFIC GRAVITIY, URINE 1.032 (1.003-1.030); UROBILINOGEN,URINE <=1.0 mg/dL (<=1.0)
[2024-09-30] MEDS: HALOPERIDOL LACTATE 5 MG/ML VIAL IM ONE (20:22)
[2024-09-30] MEDS: DiphenhydrAMINE HCL 50 MG/ML VIAL IM ONE (20:22)
[2024-09-30] MEDS: LORazepam 2 MG/ML VIAL IM ONE (20:22)
[2024-09-30 20:30] LABS: SARS-COV2 (COVID) ANTIGEN,FIA Negative (Negative)
[2024-09-30 20:30] LABS: ALCOHOL, URINE DRUG SCREEN NEGATIVE (NEGATIVE); AMPHET/METH SCREEN,URINE NEGATIVE (NEGATIVE); BARBITURATE SCREEN, URINE NEGATIVE (NEGATIVE); BENZODIAZEPINES SCREEN,URINE NEGATIVE (NEGATIVE); CANNABINOID SCREEN,URINE POSITIVE (NEGATIVE); COCAINE SCREEN,URINE NEGATIVE (NEGATIVE); METHADONE SCREEN, URINE NEGATIVE (NEGATIVE); OPIATE SCREEN,URINE NEGATIVE (NEGATIVE); PHENCYCLIDINE SCREEN,URINE NEGATIVE (NEGATIVE)
[2024-09-30 20:32] LABS: BACTERIA,URINE Few /HPF (None Seen); RBC,URINE 0-2 /HPF (0-2); SQUAMOUS EPITHELIAL CELL,UR Few /LPF (None Seen)
[2024-09-30] MEDS ORDERED: LORazepam 2 MG TABLET PO PRN (22:30)
[2024-10-01 01:18] VITALS: O2SAT 100
[2024-10-01 04:00] VITALS: BP 102/58; PULSE 61; RESP 18; TEMP 97.1
[2024-10-01 08:06] VITALS: BP 110/62; PULSE 69; RESP 16; TEMP 96.8; O2SAT 97
[2024-10-01] MEDS ORDERED: CloNIDine HCL 0.1 MG TABLET PO PRN (09:00)
[2024-10-01] MEDS ORDERED: BACITRACIN 28 GM OINTMENT TP PRN (09:00)
[2024-10-01] MEDS ORDERED: LOPERAMIDE HCL 2 MG CAPSULE PO PRN (09:00)
[2024-10-01] MEDS ORDERED: DOCUSATE SODIUM 100 MG CAPSULE PO PRN (09:00)
[2024-10-01] MEDS ORDERED: OMEPRAZOLE 20 MG CAPSULE PO PRN (09:00)
[2024-10-01] MEDS ORDERED: MAGNESIUM HYDROXIDE SUSPENSION 30 ML UDCUP PO PRN (09:00)
[2024-10-01] MEDS ORDERED: ACETAMINOPHEN 325 MG TABLET PO PRN (09:00)
[2024-10-01] MEDS ORDERED: ONDANSETRON 4 MG TABLET PO PRN (09:00)
[2024-10-01] MEDS ORDERED: PETROLATUM,WHITE 28 GM JELLY TP PRN (09:00)
[2024-10-01] MEDS: LITHIUM CARBONATE 300 MG CAPSULE PO SCH (16:35)
[2024-10-01] MEDS: MAG HYDROX/ALUMINUM HYD/SIMETH ES 30 ML SUSPENSION UDCUP PO PRN (16:47)
[2024-10-01 20:00] VITALS: RESP 18
[2024-10-01] MEDS: ZOLPIDEM TARTRATE 10 MG TABLET PO PRN (20:10)
[2024-10-01] MEDS: NICOTINE 21 MG/24 HOUR PATCH TD SCH (20:10)
[2024-10-01] MEDS: RisperiDONE 2 MG TABLET PO SCH (22:31)
[2024-10-02 09:38] LABS: EOSINOPHILS % (AUTO) 5.3 % (1.0-6.0); HEMATOCRIT 41.7 % (36-46); HEMOGLOBIN 13.7 g/dL (12.0-16.0); LYMPHOCYTES # (AUTO) 2.1 K/uL (1.0-4.8); LYMPHOCYTES % (AUTO) 29.8 % (22.0-44.0); MEAN CORPUSCULAR HEMOGLOBIN 30.1 pg (26.0-34.0); MEAN CORPUSCULAR HGB CONC 32.9 G/dL (31.0-37.0); MEAN CORPUSCULAR VOLUME 92 fL (80-100); MONOCYTES # (AUTO) 0.5 K/uL (0.1-1.0); MONOCYTES % (AUTO) 6.7 % (2.0-9.0); NEUTROPHILS # (AUTO) 3.9 K/uL (1.8-7.7); NEUTROPHILS % (AUTO) 57.2 % (40.0-70.0); PLATELET COUNT (AUTO) 243 K/uL (150-450); RED BLOOD CELL COUNT(AUTO) 4.56 MIL/uL (4.00-5.20); RED CELL DISTRIBUTION WIDTH 14.2 % (11.5-14.5); WHITE BLOOD COUNT (AUTO) 6.9 K/uL (4.5-11.0)
[2024-10-02 10:24] VITALS: BP 129/65; PULSE 100; RESP 16; TEMP 97.5; O2SAT 98
[2024-10-02] MEDS: ALBUTEROL SULFATE HFA 90 MCG/PUFF 8 GM INHALER IH PRN (11:29)
[2024-10-02 11:33] VITALS: RESP 17
[2024-10-02] MEDS: IBUPROFEN 600 MG TABLET PO PRN (11:33)
[2024-10-02 12:33] VITALS: RESP 18
[2024-10-02] MEDS: GABAPENTIN 100 MG CAPSULE PO SCH (16:36)
[2024-10-02 20:45] VITALS: BP 125/69; PULSE 100; RESP 20; TEMP 97; O2SAT 98
[2024-10-03 08:26] VITALS: BP 119/60; PULSE 90; RESP 18; TEMP 97.8; O2SAT 98
[2024-10-03 09:39] LABS: HIV ANTI-1,2,P24 AG COMBO Non-Reactive (Non-Reactiv)
[2024-10-03 09:56] LABS: HEPATITIS B SURFACE AG (II) NEGATIVE (NEGATIVE)
[2024-10-03] MEDS: HYDROCORTISONE 2.5% 30 GM OINTMENT TP SCH (17:00)
[2024-10-03 20:18] VITALS: BP 120/71; PULSE 96; RESP 18; TEMP 98.2; O2SAT 96
[2024-10-04 08:41] VITALS: BP 128/71; PULSE 97; RESP 17; TEMP 97.1; O2SAT 96
[2024-10-04 12:51] VITALS: BP 101/70; PULSE 109; RESP 18; TEMP 97.5; O2SAT 96
[2024-10-04 13:20] VITALS: BP 101/70; PULSE 109; RESP 18; TEMP 97.5; O2SAT 96
[2024-10-05 03:07] LABS: HEPATITIS C AB (EIA) Non Reactive (Non Reactive)
[2024-10-05 11:10] VITALS: BP 116/71; RESP 17; TEMP 97.3; O2SAT 97
[2024-10-05 13:45] VITALS: PULSE 95; RESP 17; O2SAT 97
[2024-10-05 14:13] VITALS: BP 154/97; PULSE 111; RESP 18; TEMP 98.6; O2SAT 99
[2024-10-05] MEDS: BENZOCAINE/MENTHOL [CEPACOL] LOZENGE PO PRN (14:14)
[2024-10-05] MEDS: haloperidoL 5 MG TABLET PO PRN (14:14)
[2024-10-05 20:42] VITALS: BP 131/68; PULSE 110; RESP 17; TEMP 96.6; O2SAT 98
[2024-10-06 02:07] LABS: HEPATITIS C AB (EIA) Non Reactive (Non Reactive)
[2024-10-06 08:34] VITALS: RESP 17
[2024-10-06 09:34] VITALS: RESP 17
[2024-10-06 10:34] VITALS: RESP 17
[2024-10-06] MEDS ORDERED: GABA-1216 PO (11:57)
== END 2024-10-06 15:50 | disposition home or self-care (01) | DRG 885 ==
LOC: EMS 19:28 → B3A 10-01 00:12 → B2S 10-01 01:47
PROVIDERS: ADMIT Psychiatry & Neurology Child & Adolescent Psychiatry; ATTEND Psychiatry & Neurology Psychiatry
PROC: GZ52ZZZ Individual Psychotherapy, Cognitive (ICD-10-PCS; principal; 2024-10-01)
PROC: GZ56ZZZ Individual Psychotherapy, Supportive (ICD-10-PCS; 2024-10-01)
DX: F20.9 Schizophrenia, unspecified (principal); F15.10 Other stimulant abuse, uncomplicated; F31.9 Bipolar disorder, unspecified; I10 Essential (primary) hypertension; Z20.822 Contact with and (suspected) exposure to COVID-19; F41.9 Anxiety disorder, unspecified; G47.00 Insomnia, unspecified; F12.90 Cannabis use, unspecified, uncomplicated; K59.00 Constipation, unspecified
CPT/HCPCS: 80048; 80178; 80307; 81001; 84703; 85025; 86803; 87081; 87340; 87389; G0480; J1200; J1630; J2060